=== PATIENT | female | born 1965 | race Two or more races ===

== ENCOUNTER → 2024-02-01 | Day surgery (SDC) | payer OTHER ==
[2024-01-31 10:04] LABS: Basophils # (auto) 0 10 ^3/uL (0-0.2); Basophils % (auto) 0.7 % (0.0-2.0); Eosinophils # (auto) 0.1 10 ^3/uL (0-0.8); Eosinophils % (auto) 1.7 % (0.0-7.0); Hematocrit 44.9 % (36.0-46.0); Hemoglobin 15.3 g/dL (12.2-16.2); Lymphocytes % (auto) 20.4 % (10.0-50.0); Mean Corpuscular Hgb Conc. 34.1 g/dL (32.0-36.0); Monocytes # (auto) 0.4 10 ^3/uL (0-1.3); Neutrophils # (auto) 3.3 10 ^3/uL (1.6-8.6); Neutrophils % (auto) 68.2 % (37.0-80.0); Platelet Count (auto) 243 10^3/uL (140-450); Red Blood Cells 4.77 10^6/uL (4.0-5.20); Red Cell Distribution Width 15.8 % (11.8-14.3); White Blood Cell 4.8 10^3/uL (4.4-10.8)
[2024-01-31 10:26] LABS: INR 0.97 (0.9-1.15); Partial Thromboplastin Time 29.4 SEC (24.5-34.5); Prothrombin Time 10.3 sec (9.3-11.8)
[2024-01-31 10:51] LABS: Alanine Aminotransferase 28 U/L (7-40); Alkaline Phosphatase 101 U/L (46-116); Anion Gap 7 (5-15); BUN/Creatinine Ratio 18.8 (10.0-20.0); Blood Urea Nitrogen 15 mg/dL (9-23); Calcium 10.2 mg/dL (8.7-10.4); Carbon Dioxide 28 mmol/L (20-31); Chloride 104 mmol/L (98-107); Glucose 90 mg/dL (74-106); Potassium 4.7 mmol/L (3.5-5.1); Sodium 139 mmol/L (136-145)
[2024-01-31 10:53] LABS: Albumin 4.8 g/dL (3.2-4.8); Aspartate Aminotransferase 37 U/L (13-40); Bilirubin, Total 0.4 mg/dL (0.2-1.0); Total Protein 7.9 g/dL (5.7-8.2)
[2024-01-31 11:48] LABS: Urine Bacteria FEW /hpf (None Seen); Urine Blood Negative /uL (Negative); Urine Clarity Clear (Clear); Urine Color Yellow (Yellow); Urine Mucus FEW (None Seen); Urine Protein, UAD Negative (Negative); Urine Specific Gravity 1.015 (1.001-1.035); Urine Urobilinogen Normal (Negative); Urine WBC <1 /hpf (0 - 5)
[~2024-02-01] VITALS: Ht 180.3 cm; Wt 135.2 kg
[~2024-02-01] MED LIST: ALPR0.25 PO; BUPIVACAINE 0.5% MPF INJ 30ML SDV IJ ONE; BUSP10TA31 PO; DULO20CA PO; EPINEPHrine HCL 1 MG/1 ML AMP ONE; FOLITAB22 PO; GABA-1250 PO; KETOROLAC TROMETH 30 MG/ML 1ML VIAL ONE; LIDOCAINE 1% HCL (LOCAL ANESTH.) INJ 20ML MDV ONE; LIDOCAINE HCL 100 MG/5ML (2%) SYRG INJ IV ONE; MELO15TA29 PO; METH2.5T PO; METOCLOPRAMIDE HCL 5MG/ml INJ 2ml VIAL IV ONE; MIDAZOLAM HCL 2MG/2ML 2ml VIAL (1mg/ml) ONE; MORPHINE SULF PF 5 MG/10 ML VIAL ONE; PROPOFOL 10 MG/ML 20 ML IV ONE; PROPOFOL 100 ML IV ONE; PROPOFOL 200 ML IV ONE; ROCURONIUM 10MG/ML 10ML VIAL IV ONE; ROPIVACAINE 0.5% (5MG/ML) 20ML AMPULE IJ ONE; SUGAMMADEX 200mg/2ml Vial (100MG/ML) IV ONE; TRANEXAMIC ACID 10 ML ONE; VANCOMYCIN HCL 1000 MG VL ONE
[2024-02-01 11:50] VITALS: TEMP 97.8
[2024-02-01 15:04] VITALS: O2SAT 99
[2024-02-01 15:20] VITALS: O2SAT 94
[2024-02-01 16:19] VITALS: BP 124/95; PULSE 91; RESP 16; O2SAT 95
== END | disposition home or self-care (01) ==
LOC: SUR 10:59
PROVIDERS: ATTEND Orthopaedic Surgery Sports Medicine
DX: M75.121 Complete rotator cuff tear or rupture of right shoulder, not specified as traumatic (principal); M25.811 Other specified joint disorders, right shoulder; S43.491A Other sprain of right shoulder joint, initial encounter; M94.211 Chondromalacia, right shoulder; M65.811 Other synovitis and tenosynovitis, right shoulder; M75.51 Bursitis of right shoulder; E66.01 Morbid (severe) obesity due to excess calories; M06.9 Rheumatoid arthritis, unspecified; Z68.41 Body mass index [BMI] 40.0-44.9, adult; Z90.89 Acquired absence of other organs; Z88.0 Allergy status to penicillin; Z79.899 Other long term (current) drug therapy; X58.XXXA Exposure to other specified factors, initial encounter; Y93.89 Activity, other specified; Y92.89 Other specified places as the place of occurrence of the external cause; Y99.8 Other external cause status
CPT/HCPCS: 29826; 29827; 36415; 80053; 81001; 85025; 85610; 85730; J0171; J1885; J2003; J2250; J2270; J2704; J2765; J2795; J3370; J7060; A4565; J3490